=== PATIENT | female | born 1960 | race Caucasian/White ===

== ENCOUNTER → 2016-09-12 | Outpatient (CLI) | payer BC, OTHER ==
[~2016-09-12] VITALS: Ht 175.3 cm; Wt 100.8 kg
[~2016-09-12] MED LIST: ACCUNEB0.63 MG/3 INH; ADDERALL 20 MG20 M1 PO; ADDERALL 30 MG30 MG PO; ALBUTEROL2.5 MG/0.1 IH; ALBUTEROL2.5 MG/0.1 INH; AMITRIPTYLINE H25 M2 PO; ASPIR-LOW81 MG PO; ASPIRIN EC81 M1 PO; ASPIRIN325 PO; ATIVAN0.5 MG PO; BRINTELLIX10 MG PO; BRINTELLIX20 MG PO; BUPROPION XL150 MG PO; CALCIUM CITRAT1 EA18 PO; CENTRUM SILVER1 EAC4 PO; CIPROFLOXACIN500 M1 PO; COLESTID1 GM PO; COZAAR 25 MG TA25 M1 PO; DEPLIN-ALGAL O1 EAC1 PO; DILAUDID 2 MG TA2 MG PO; EFFEXOR XR PO; EFFEXOR XR150 MG PO; ESTRACE1 MG PO; FETZIMA80 MG PO; FISH OIL 1,001000 M2 PO; IBUPROFEN 600600 M1 PO; IBUPROFEN 800800 MG PO; LEVOTHYROXINE0.05 MG PO; LIPITOR 20 MG T20 M1 PO; MOBIC7.5 MG PO; MULTIVITAMINS PO; NORCO 10-325 T1 EACH PO; NORCO 5-325 TA1 EACH PO; NORTRIPTYLINE H10 M1 PO; ONDANSETRON HCL4 M2 PO; OXYCODONE HCL15 MG PO; OXYCODONE-ACET1 EAC2 PO; OXYCODONE-APAP1 EAC6 PO; OXYCONTIN15 MG PO; PERCOCET 10-321 EACH PO; PERCOCET 5-3251 EACH PO; PERCOCET 7.5-51 EACH PO; PREDNISONE 20 M20 M1 PO; PREDNISONE50 MG PO; PRISTIQ100 MG PO; PROAIR HFA8.5 GM IH; PROGESTERONE100 MG PO; PROVENTIL HFA6.7 G1 INH; REFRESH TEARS15 ML OPHTHALMIC; ROXANOL 20 M20 MG/ML PO; SEROQUEL 100 M100 M1 PO; TRAZODONE HCL100 MG PO; TRILIPEX PO; TRILIPIX135 MG PO; UNICOMPLEX M TA1 TA1 PO; URSO FORTE500 MG PO; VENTOLIN HFA 1818 GM INH; VERAPAMIL ER120 M1 PO; VITAMIN D-32000 UNIT PO; VITAMIN D1000 UNI1 PO; VOLTAREN GEL 1100 G2 TOP; VYVANSE70 MG PO; WELLBUTRIN 75 M75 M1 PO; WELLBUTRIN SR150 MG PO; XOPENEX 0.63 MG/3 M1 IH; XOPENEX1.25 MG/3 IH; ZANAFLEX4 MG PO; ZOFRAN 4 MG ORAL4 MG SUBLING; ZOFRAN ODT4 MG PO; ZOLOFT100 MG PO; ZPAK PO; ZYRTEC10 M2 PO
--- NOTE | ~2016-09-12 | HPC ---
[facility] [address] [address] PAIN MANAGEMENT CONSULTATION Name: SYLVIA JACK Room #: REG [facility] M..#: [id number] Admission: 09/12/16 Attend Phys: Eliseo Howard MD Discharge: Date of : 56 Report #: [id number] THIS REPORT FOR: //name// CC: Aristeo Howard DATE OF SERVICE: 09/12/2016 REASON FOR VISIT: Followup visit for chronic back pain with spondylosis. Also, chronic pancreatitis and management of high-risk medication. HISTORY OF PRESENT ILLNESS: The patient returns to pain clinic today for renewal of medication. She has been complaining of abdominal pain related to intermittent pancreatitis and also her chronic low back pain. I provided her with medication under terms of an opioid agreement. She says that with medication, her pain score is tolerable, 5/10, and also she finds that better pain control has helped greatly with her depression and her mood. She has suffered throughout her life with severe depression. She underwent ECT treatments other than 2013, and has been pretty stable since then, although she does not have severe depression, which required such aggressive treatment. She has chronic low mood, which is generally worse when her pain is more severe. Today, she reports that her activities have been reasonable. She has been able to do many of her day-to-day activities around the house and she gets out helping some family numbers. Pain is exacerbated by walking and prolonged standing in the low back. She cannot figure out dietarily what may exacerbate her pancreatitis, but when it occurs, it is severe. MEDICATIONS: Provided through our clinic are oxycodone 15 mg tablet, she takes one half tablet 4 times daily, a reduction from peak doses of about twice that; nortriptyline 10 mg at bedtime; levothyroxine 0.05; atorvastatin 20 mg daily; trazodone 100 mg at bedtime; Seroquel 100 mg at bedtime; multivitamins and cholecalciferol. ALLERGIES: PHENOTHIAZINES and MORPHINE. PAST MEDICAL HISTORY: Significant for: 1. Chronic pancreatitis. 2. Chronic low back pain with radiculopathy. 3. Severe chronic depression. 4. Qynsl-Hgxfyybdq-Jygue syndrome. PHYSICAL EXAMINATION: PSYCHIATRIC: Affect is pleasant, but a little flat. This is typical. VITAL SIGNS: Blood pressure 139/96, heart rate 91 and respirations 18. She is [facility] [address] [place] [address] PAIN MANAGEMENT CONSULTATION Name: SYLVIA JACK Room #: REG CL MEvert.#: [id number] Admission: 09/12/16 Attend Phys: Eliseo Howard MD Discharge: Date of : 56 Report #: [id number] 5 feet 9 inches, 222 pounds and BMI is 32.8. MUSCULOSKELETAL: She moves easily from sitting to standing position, ambulates without difficulty. Minor pain is noted across the low back, and she has decreased range of motion in flexion, extension and rotation. Straight leg raising is negative for sensory sensation changes or discomfort. Mild tenderness over multiple joints including hips and knees. IMPRESSION: 1. Chronic low back pain with spondylosis. 2. Chronic pancreatitis, intermittent, abdominal pain. 3. Management of high-risk medication. RECOMMENDATIONS: Today, I reviewed important issues related to the use of opioids and other potent, centrally-acting medications for the treatment of pain. Rationale for the use of medication is to reduce pain and improve daily activities and function. These activities, individualized for each patient, include simple activities of daily living, improvement in work capabilities, increased involvement in family and other social activities. Improvement in psychosocial elements of chronic pain were discussed in a broader conversation of wellness that included nonpharmacologic measures to manage pain, suffering and efforts to enhance wellbeing. Remaining as physically active as possible for age and ability plays a tremendous role in the management of chronic pain. This was encouraged. We reviewed potential medication side effects, toxicities and drug interactions, employing strategies to manage problems identified. Pain medications have potential side effects, and patients should exercise caution when operating machinery or driving. We discussed in detail the dramatic increase in the Emergency Room visits, hospitalizations and deaths related to misuse and diversion of prescription pain medications in [place]. This opioid crisis in [place] requires both physicians and patients alike to safely use all medications. Safeguarding of medications by keeping them safely locked up or out of reach of others is a critical patient responsibility to ensure that medications are not diverted to others. We discussed the Center for Disease Control (CDC) guidelines for safe use of opioids and the efforts to standardize opioid prescribing to prevent complications. These include guidelines which we strive to meet. They include the standardization of various opioids to morphine milligram equivalents (MME) and also stress the use of the lowest effective dose. Efforts to remain within daily maximum dosing guidelines will also be of focus of treatment. Addiction versus therapeutic use of medication includes routine followup, single prescriber, single pharmacy and the use of random drug screens and other tools to ensure safe prescribing. A signed agreement outlying these issues has been reviewed and remains on the patient chart. Prescriptions were provided today under terms of that agreement, and followup for her is planned in 3 months. [facility] [address] [place] [address] PAIN MANAGEMENT CONSULTATION Name: SYLVIA JACK Room #: REG [facility].#: [id number] Admission: 09/12/16 Attend Phys: Eliseo Howard MD Discharge: Date of : 56 Report #: [id number] I have renewed her oxycodone today at 7.5/325, #120 tablets per month, 1 tablet every 6 hours as needed. Followup visit is scheduled in 3 months. <ELECTRONICALLY SIGNED> By: Eliseo Hwoard MD 10/12/16 1130 [id number] Eliseo Howard MD /nt
[2016-09-12 09:00] VITALS: BP 139/96
[2016-09-17 14:09] LABS: EER PAIN MGT INTERP FINAL (())
== END ==
LOC: PAIN 07:12
PROVIDERS: Anesthesiology Pain Medicine
DX: M54.16 Radiculopathy, lumbar region (principal); F32.9 Major depressive disorder, single episode, unspecified; I45.6 Pre-excitation syndrome; G89.29 Other chronic pain; I10 Essential (primary) hypertension

== ENCOUNTER → 2016-11-28 | Outpatient (CLI) | payer BC, OTHER ==
[~2016-11-28] VITALS: Ht 175.3 cm; Wt 99.8 kg
[~2016-11-28] MED LIST changes: +COZAAR 50 MG TA50 M2 PO
--- NOTE | ~2016-11-28 | HPC ---
[facility] [address] [place] [address] PAIN MANAGEMENT CONSULTATION Name: SYLVIA JACK Room #: REG [facility] [id number] Admission: 11/28/16 Attend Phys: Eliseo Howard MD Discharge: Date of : 56 Report #: [id number] THIS REPORT FOR: //name// CC: Aristeo Howard DATE OF SERVICE: 11/28/2016 HISTORY OF PRESENT ILLNESS: The patient returns to the clinic today in followup for her chronic pain. She has chronic low back pain, multiple joint arthropathy. She has also suffered in the past from pancreatitis. Currently, she appears to be doing fairly well. Her pain scores is 5 and average for her. She is complaining of low back pain, sacroiliac joint pain, chronic and aching when standing and walking. She is grateful for medication, uses as prescribed, safeguards all medications and has had no red flag behaviors. Urine drug screens have been appropriate. Today, we discussed the opioid crisis in the [place], the importance of using medicines as prescribed. She will continue on her medication course for now. We will continue to monitor medications at 3-month intervals. PHYSICAL EXAMINATION: Affect is a bit flat today. Blood pressure is 162/123, heart rate is 119, BMI is 32.5. Tenderness across the low back is noted with straight leg raising bilaterally in the lower extremities. IMPRESSION: 1. Chronic low back pain with spondylosis. 2. Hypertension. She is off her medication. She has not been able to get a new prescription from Dr. Ash or from her bog worker. Apparently, her bog worker has left the group and she has not seen a new one. I have agreed to provide her with a prescription for her Cozaar 50 mg once daily. She has been off for the first several days. I would like her to take it immediately today and scheduled an appointment. 3. Chronic depression and anxiety, which is stable at the moment. PLAN: All medications renewed under terms of our agreement. We will see her back in 3 months. By: 1600 02 Eliseo Howard MD /nt
[2016-11-28 13:19] VITALS: BP 166/123
== END ==
LOC: PAIN 07:12
DX: K85.90 Acute pancreatitis without necrosis or infection, unspecified (principal); I10 Essential (primary) hypertension; F32.9 Major depressive disorder, single episode, unspecified; F41.9 Anxiety disorder, unspecified

== ENCOUNTER → 2017-02-24 | Outpatient (CLI) | payer BC, OTHER ==
[~2017-02-24] VITALS: Ht 175.3 cm; Wt 100.1 kg
--- NOTE | ~2017-02-24 | HPC ---
[facility] [address] [place] [address] PAIN MANAGEMENT CONSULTATION Name: SYLVIA JACK [facility]#: [id number] Admission: 02/24/17 Attend Phys: Eliseo Howard MD Discharge: Date of : 56 Report #: [id number] THIS REPORT FOR: //name// CC: Earnest Howard DATE OF SERVICE: 02/24/2017 DATE OF REGISTRATION: 02/24/2017 Followup visit for chronic back pain, sacroiliac joint pain and spondylosis. I also follow and manage high risk medication for her under terms of an opioid agreement. The patient returns to pain clinic today for renewal of her pain medication. She says she is doing fairly well. Her current dose of Percocet 4 tablets a day. She uses Percocet 7.5/325 effectively to help control her pain and improve her day-to-day activities. She denies any significant side effects. She has been on time for her medication and at each visit and has shown no red flag behaviors. Urine drug screen was performed a year and a half ago, which is appropriate, I have not repeated it. We discussed the opioid crisis again today, CDC guidelines and importance of safeguarding all medications and taking them as prescribed. On physical exam, her pain is 6 today. It is low back and sacroiliac joints associated with pain and stiffness when she moves and ambulates. She has localized tenderness. She has pain with forward flexion and extension of the spine. There is no numbness, tingling or weakness in the lower extremities. IMPRESSION: 1. Chronic intractable back pain with spondylosis. 2. Multiple joint arthropathy. 3. History of pancreatitis with abdominal pain. 4. History of severe recurrent clinical depression, currently in remission. 5. Hypertension. 6. Management of high risk medication. Medications were renewed under terms of our opioid agreement. Percocet 7.5 mg #4 per day, followup visit planned in 3 months. By: [id number] Eliseo Howard MD /nt
[2017-02-24 11:21] VITALS: BP 124/79
== END | disposition home or self-care (01) ==
LOC: PAIN 06:53
DX: M47.896 Other spondylosis, lumbar region (principal); G89.29 Other chronic pain; I10 Essential (primary) hypertension; J45.909 Unspecified asthma, uncomplicated; M12.88 Other specific arthropathies, not elsewhere classified, other specified site; F32.89 Other specified depressive episodes; F11.20 Opioid dependence, uncomplicated; Z87.19 Personal history of other diseases of the digestive system; Z88.8 Allergy status to other drugs, medicaments and biological substances; Z98.890 Other specified postprocedural states; Z79.899 Other long term (current) drug therapy

== ENCOUNTER → 2017-06-09 | Outpatient (CLI) | payer OTHER ==
[~2017-06-09] VITALS: Ht 175.3 cm; Wt 99.8 kg
[~2017-06-09] MED LIST changes: +IMODIUM A-D2 MG PO
--- NOTE | ~2017-06-09 | HPC ---
[facility] [address] [place] [address] PAIN MANAGEMENT CONSULTATION Name: SYLVIA JACK Room #: REG [facility] MWilma.#: [id number] Admission: 06/09/17 Attend Phys: Eliseo Howard MD Discharge: Date of : 56 Report #: [id number] THIS REPORT FOR: //name// CC: Aristeo Howard DATE OF SERVICE: 06/09/2017 Followup visit for management of intractable back pain and pancreatitis with abdominal pain. The patient returns to pain clinic today to discuss her medication. We spent about 25 minutes today discussing opioids. She has been certainly influenced by all ____ received discussing opioid addiction. She would like to taper her medication. I have agreed to drop her medication by about 25% today and then we talked about whether or not it is appropriate for her to remain on opioid medication. When she takes the medication, she definitely receives substantial pain relief and this has been sustained over the terms of our prescribing. She is grateful for the relief that she gets and how much benefit it provides for her. She has no significant side effects in fact with her issues regarding pancreatitis. She has frequent stools and this helps to slow them down, rather than be a complication, it is a benefit to her. She does not feel that it affects her cognitively. In fact, she thinks that she is able to concentrate more clearly and is able to work at home at her job with the use of the medicine. She has had no drug aberrant behaviors or signs of addiction. She safeguards her medication carefully. I think it is quite appropriate to treat her for her chronic pain issues with this. She has had a history of depression. We talked about depression at some length. She reports to me that her worst depression comes with issues associated with pain and the effects that it has on her day-to-day activities. Safeguarding medications and using them carefully I think is appropriate long-term for her and I hope that we will be able to provide her with these medications indefinitely. Her current morphine milligram equivalence is 7.5 x 4 tablets a day or 30 mg of oxycodone equal to 45 MME. I reviewed the CDC guidelines with her and her opioid agreement. PHYSICAL EXAMINATION: GENERAL: Today, her affect is a little depressed. VITAL SIGNS: Blood pressure 130/94, heart rate 105, respirations 18. MUSCULOSKELETAL: She has tenderness across her low back. Positive straight leg raising on the left with numbness and tingling in the calf. ABDOMEN: Mildly tender. IMPRESSION: [facility] [address] [place] [address] PAIN MANAGEMENT CONSULTATION Name: SYLVIA JACK [id number] Admission: 06/09/17 Attend Phys: Eliseo Howard MD Discharge: Date of : 56 Report #: [id number] 1. Chronic intractable back pain with spondylosis. 2. History of pancreatitis with abdominal pain. 3. History of severe recurrent clinical depression, currently in remission, although her mood seems to be lower today and she is apprehensive about her use of medication, which I believe that we have helped with today. 4. Management of high risk medication. Medications were renewed under terms of our agreement for 3 months, oxycodone 7.5/325 #120 tablets q.i.d. and a followup visit is scheduled in 3 months. Total time 25 minutes. By: [id number] Eliseo Howard MD /nt
[2017-06-09 12:47] VITALS: BP 130/94
== END | disposition home or self-care (01) ==
LOC: PAIN 06:59
DX: Z76.0 Encounter for issue of repeat prescription (principal); M47.896 Other spondylosis, lumbar region; G89.29 Other chronic pain; J45.909 Unspecified asthma, uncomplicated; F32.89 Other specified depressive episodes; Z87.19 Personal history of other diseases of the digestive system; Z79.891 Long term (current) use of opiate analgesic; Z88.6 Allergy status to analgesic agent; Z88.8 Allergy status to other drugs, medicaments and biological substances; Z79.899 Other long term (current) drug therapy

== ENCOUNTER → 2017-09-22 | Outpatient (CLI) | payer OTHER ==
[~2017-09-22] VITALS: Ht 175.3 cm; Wt 101.2 kg
[~2017-09-22] MED LIST changes: +EFFEXOR XR75 MG PO; +GEMFIBROZIL 60600 M1 PO
--- NOTE | ~2017-09-22 | HPC ---
[facility] [address] [place] [address] PAIN MANAGEMENT CONSULTATION Name: SYLVIA JACK Room #: REG [facility] MEvert.#: [id number] Admission: 09/22/17 Attend Phys: Trey Haile DO Discharge: Date of : 56 Report #: [id number] THIS REPORT FOR: //name// CC: Aristeo Haile This is a 57-year-old female, typically treated by Dr. Howard for ongoing axial back pain, lumbar spondylosis, component of SI mediated pain, history of pancreatitis and abdominal pain requiring high risk complex medication management. Last seen in the pain clinic on 06/09/2017, continued on baseline medication including Percocet 7.5/325 up to 4 a day. The patient returns to pain clinic today noting medications generally helpful enabling the patient to participate in activities of daily living, rates her subjective pain score 7 on a VAS. No history of arthritis, although she has been treated for left SI mediated pain with only nominal efficacy. BMI 32.9 kilograms per meter squared. Vital signs stable as noted on the EMR. 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 Does have history of hypertension, medicine list was reconciled today. She has been on opiate consent to treat contract for some time, last contract reviewed 03/06/2016. Last drug screen was 09/2016, positive for prescribed medications. We did take the liberty of renewing buccal drug swab today. No aberrant behavior suggestive of drug diversion, simply complying with the opiate consent to treat contract. The patient's functional assessment tool notes a moderate impact of 35/70. She scores low risk on the opiate risk assessment tool. PHYSICAL EXAMINATION: Otherwise shows tenderness over the left SI. Modestly positive Mikaela test. No radicular symptoms noted. Gait is generally tandem. Abdominal exam is deferred. She notes last bout of pancreatitis related type pain was greater than a month ago. She notes to simply switch to a clear liquid diet when she starts to get early symptoms of GI distress. We reviewed the fact that opiate medications are being used to provide analgesia adequate to support activities of daily living, not attempting to achieve a specific pain score on the 0-10 Visual Analog Scale. The current opiate medications are providing sufficient analgesia to allow the patient to participate in activities of daily living. The patient is not exhibiting any aberrant behavior suggestive of drug diversion. The patient is not having any adverse reactions to medications. The patient is not suffering from daytime somnolence or mental acuity changes. The patient is managing opiate-induced constipation with appropriate dtgl-tdq-vpshhzs agents and dietary considerations. The patient was counseled on concern for caution with operating a motor vehicle while using opiate medications. A physical exam was performed and the patient's functional status was evaluated. All patients with back pain were advised against the bed rest greater than [address] [place] [address] PAIN MANAGEMENT CONSULTATION Name: SYLVIA JACK SAADIA Room #: REG CL Terri#: [id number] Admission: 09/22/17 Attend Phys: Trey Haile DO Discharge: Date of : 56 Report #: [id number] days and were advised to return to normal activities. Pain score assessment was noted and the treatment plan was reviewed with the patient. All current medications, both prescribed and OTC were reviewed and reconciled on the electronic medical record. Tobacco screening was accomplished and smoking cessation was advised when indicated. BMI was noted and diet/exercise modification was recommended for all patients following outside normal parameters. I reviewed with the patient today their responsibilities to safeguard prescription medications, reviewed their responsibility to utilize medications only as prescribed by the physician. They are to seek and receive pain medications only from 1 physician group ( [facility]). They are to use 1 pharmacy and keep the clinic informed if they change pharmacies. Their responsibilities include making followup visits in a timely fashion and to avoid abrupt discontinuation of medication usage. Their responsibilities further include bringing their medications (bottles from the pharmacy with residual pills) to the visit for possible confirmation of pill counts and the patient understands it is their responsibility to submit to random drug screens to ensure both that the medications prescribed are present, and that no other controlled substances are present. All prescriptions provided today were generated electronically. ASSESSMENT: Axial back pain, lumbar spondylosis, history of abdominal pain, pancreatitis with component of left SI mediated pain, requiring high risk complex medication management. RECOMMENDATION: 1. Discussed with the patient. They would like to do one repeat buccal drug swab today. Again, last random drug screen approximately 1 year ago 09/2016. 2. Renew Percocet 7.5/325 up to 4 times a day. Follow up in 3 months for reevaluation. We did talk about core strengthening exercises to help mitigate SI mediated pain. <ELECTRONICALLY SIGNED> By: Trey Haile DO 09/24/17 [id number] Trey Haile DO /nt
[2017-09-22 13:59] VITALS: BP 142/89
== END ==
LOC: PAIN 07:11
DX: M47.896 Other spondylosis, lumbar region (principal); M53.3 Sacrococcygeal disorders, not elsewhere classified; Z87.19 Personal history of other diseases of the digestive system; Z79.899 Other long term (current) drug therapy

== ENCOUNTER → 2018-01-30 | Outpatient (CLI) | payer OTHER ==
[~2018-01-30] VITALS: Ht 175.3 cm; Wt 103.8 kg
[~2018-01-30] MED LIST changes: -EFFEXOR XR75 MG PO; -GEMFIBROZIL 60600 M1 PO
--- NOTE | ~2018-01-30 | HPC ---
[facility] [place] [address] PAIN MANAGEMENT CONSULTATION Name: SYLVIA JACK [id number] Admission: 01/30/18 Attend Phys: Trey Haile DO Discharge: Date of : 56 Report #: [id number] THIS REPORT FOR: //name// CC: Aristeo Haile HISTORY OF PRESENT ILLNESS: The patient is a very pleasant 57-year-old female typically treated by Dr. Eliseo Howard for ongoing axial back pain, lumbar and lumbosacral spondylosis without myelopathy, requiring complex medication management. I did see her at her last on 09/22/[address] Howard's absence, ordered a random drug screen at that time. Reviewing the random drug screen was positive for oxycodone and nortriptyline as expected. No aberrant findings were noted. She returns to pain clinic today noting medications are generally providing sufficient analgesia to participate in activities of daily living. She uses her Percocet 7.5/325 on a nondaily basis. She had prescriptions for 120 tablets total of 3 months generated on 09/22/2017. The 3-month prescription last about 4-1/2 months. She returns to pain clinic today noting pain is about 6 on a VAS. Pain is across the low back, sacroiliac area, has a little numbness in the left leg calf and foot. Notes chronic aching, stiffness is exacerbated with standing, walking, weather changes as well. She states sometimes "the pain is just there." She gets some relief with medication, heat and when she is recumbent. PHYSICAL EXAMINATION: Reveals a 57-year-old female modestly overweight with a BMI of 33.8 kilograms per meter squared. Blood pressure 151/79, pulse is 110, respirations of 16. She is alert and oriented to person, place, and time, judged to be a reasonable historian. Rises from chair using armrest, modestly antalgic gait favoring the left leg. Diffuse tenderness across the low back, no discrete trigger points noted. Lumbar range of motion is limited. Side bending flexion and extension all exacerbate pain. The patient has not fallen in the last 3 months. She is an opiate consent to treat contract patient having last signed in 03/2016. We reviewed the patient's responsibilities regarding medication use, she is using it exquisitely appropriately as noted, she uses it on a very much p.r.n. basis. She is unable to take up to 4 tablets a day, she rarely does this. We reviewed the fact that opiate medications are being used to provide analgesia adequate to support activities of daily living, not attempting to achieve a specific pain score on the 0-10 Visual Analog Scale. The current opiate medications are providing sufficient analgesia to allow the patient to participate in activities of daily living. The patient is not exhibiting any aberrant behavior suggestive of drug diversion. The patient is not having any adverse reactions to medications. The patient [place] [address] PAIN MANAGEMENT CONSULTATION Name: GUEROSYLVIA SAADIA Room #: REG [facility]HEL[facility] Murray#: [id number] Admission: 01/30/18 Attend Phys: Trey Haile DO Discharge: Date of : 56 Report #: [id number] somnolence or mental acuity changes. The patient is managing opiate-induced constipation with appropriate [id number] agents and dietary considerations. The patient was counseled on concern for caution with operating a motor vehicle while using opiate medications. A physical exam was performed and the patient's functional status was evaluated. All patients with back pain were advised against the bed rest greater than 4 days and were advised to return to normal activities. Pain score assessment was noted and the treatment plan was reviewed with the patient. All current medications, both prescribed and OTC were reviewed and reconciled on the electronic medical record. Tobacco screening was accomplished and smoking cessation was advised when indicated. BMI was noted and diet/exercise modification was recommended for all patients following outside normal parameters. I reviewed with the patient today their responsibilities to safeguard prescription medications, reviewed their responsibility to utilize medications only as prescribed by the physician. They are to seek and receive pain medications only from 1 physician group ( [facility]). They are to use 1 pharmacy and keep the clinic informed if they change pharmacies. Their responsibilities include making followup visits in a timely fashion and to avoid abrupt discontinuation of medication usage. Their responsibilities further include bringing their medications (bottles from the pharmacy with residual pills) to the visit for possible confirmation of pill counts and the patient understands it is their responsibility to submit to random drug screens to ensure both that the medications prescribed are present, and that no other controlled substances are present. All prescriptions provided today were generated electronically. ASSESSMENT: 1. Symptomatic axial back pain. 2. Lumbar and lumbosacral spondylosis without myelopathy, requiring complex medication management in the opiate consent to treat contract patient, has been very stable on current medication. She is prescribed a maximum of 45 mEq of morphine a day (Percocet 7.5/325 up to four a day). RECOMMENDATIONS: I have taken the liberty of renewing 3 months of current medication. The patient was discharged in good and stable condition. Follow up with Dr. Eliseo Howard. <ELECTRONICALLY SIGNED> By: Trey Haile DO 02/02/18 [id number] Trey Haile DO /hoa
[2018-01-30 09:35] VITALS: BP 151/79
== END ==
LOC: PAIN 07:27
DX: M47.27 Other spondylosis with radiculopathy, lumbosacral region (principal); Z79.899 Other long term (current) drug therapy

== ENCOUNTER → 2018-04-27 | Outpatient (CLI) | payer OTHER ==
[~2018-04-27] VITALS: Ht 175.3 cm; Wt 103.9 kg
[~2018-04-27] MED LIST changes: +EFFEXOR XR75 MG PO; +GEMFIBROZIL 60600 M1 PO
--- NOTE | ~2018-04-27 | HPC ---
[facility] [address] [place] [address] PAIN MANAGEMENT CONSULTATION Name: SYLVIA JACK Room #: REG [facility] M..#: [id number] Admission: 04/27/18 Attend Phys: Eliseo Howard MD Discharge: Date of : 56 Report #: [id number] THIS REPORT FOR: //name// CC: Aristeo Howard DATE OF SERVICE: 04/27/2018 Followup visit for chronic pain. The patient returns to pain clinic today in followup for low back pain. The patient has been managing with medication for a number of years. We have slowly tapered her morphine milligram equivalents and she has been able to do so without significant increases in pain. Her current daily dose of medication is oxycodone 7.5/325 four times daily. This equates to a morphine milligram equivalency of 45. She has pain in her hips, sacroiliac joint is worse with walking and gardening. She also has intermittent abdominal pain related to a condition she describes as chronic pancreatitis. It flares about every 4-6 weeks and usually resolves without need for gastrointestinal consultation. She reports that her medication is very helpful. She scores her pain as a 6 today, which is a fairly high number, but she reports without medication, she would be more incapacitated. With medications, she is able to be more involved in day-to-day activities. In fact, recently was working in the garden. She paid the duenas with some increase in back pain for the next day. We talked about this as a normal phenomena for most people in our age group. Use of heat, ice and nonmedicinal pain treatments have been reviewed. In the past, she has had some injections with favorable responses, but for now, we are using injections only when the pain is very severe. She has had buccal drug testing performed intermittently. Most recent testing done earlier this year appropriate for medications provided. We have checked medication through the [employer] prescribing system and all medications are appropriate for what were prescribed with no additional prescribers. PHYSICAL EXAMINATION: She is pleasant, alert and oriented without any signs of depression, anxiety or overmedication. Her blood pressure is 135/83, heart rate 108, respirations 16. Her BMI is 33. She is able to move from sitting to standing position, walks with mild antalgic feature. She has pain with forward flexion, extension and tenderness across the lumbosacral segment. There is no leg pain at this time. Abdomen is nontender. [facility] [address] [place] [address] PAIN MANAGEMENT CONSULTATION Name: SYLVIA JACK Room #: REG [facility] Terri#: [id number] Admission: 04/27/18 Attend Phys: Eliseo Howard MD Discharge: Date of : 56 Report #: [id number] IMPRESSION: 1. Chronic low back pain with spondylosis. 2. Chronic pancreatitis with intermittent abdominal pain. 3. Management of high-risk medications under terms of written opioid agreement. PLAN: Renew medications under terms of our agreement. Most important thing I have discussed with her is the safeguarding of all medications under terms of our agreement. She is responsible for medications once they leave our clinic. She reports to me that she has her medications locked and will keep vigilant. She denies any significant side effects at this time. By: [id number] Eliseo Howard MD /nt
[2018-04-27 12:38] VITALS: BP 135/83
== END ==
LOC: PAIN 07:01
DX: M47.816 Spondylosis without myelopathy or radiculopathy, lumbar region (principal); K86.1 Other chronic pancreatitis; G89.29 Other chronic pain; Z79.891 Long term (current) use of opiate analgesic

== ENCOUNTER → 2018-08-21 | Outpatient (CLI) | payer OTHER ==
[~2018-08-21] VITALS: Ht 175.3 cm; Wt 100.7 kg
--- NOTE | ~2018-08-21 | HPC ---
[facility] [address] [place] [address] PAIN MANAGEMENT CONSULTATION Name: SYLVIA JACK Room #: REG [facility].#: [id number] Admission: 08/21/18 Attend Phys: Eliseo Howard MD Discharge: Date of : 56 Report #: [id number] THIS REPORT FOR: //name// CC: Aristeo Howard DATE OF SERVICE: 08/21/2018 CHIEF COMPLAINT: Chronic low back pain. HISTORY OF PRESENT ILLNESS: This is a followup visit for the patient, who is doing reasonably well with her medication and is stable. Her medications have been stable for some time. We have made very few adjustments. She uses her medication cautiously, is grateful for the pain relief that it provides and improves her day-to-day function and mood. She suffers from depression and seasonal affective disorder. We discussed strategies to help with this unfortunate disorder. I stressed getting outside for a walk, even in the coldest weather. Studies have shown that this is helpful. She receives oxycodone 7.5/325 four tablets daily. This is 30 mg of oxycodone or 45 MME. She has been at that dose for some time and has been continuing to try and taper her medication further. She is open to trying to go to a lower dose at a subsequent visit. I looked back in her chart at least as far as 2013 and the dose was similar. PHYSICAL EXAMINATION: GENERAL: She is slightly depressed, but pleasant. VITAL SIGNS: Blood pressure 147/57, heart rate 83, BMI is 32.8. We discussed weight strategies during the holidays. Pain intensity is 5/10. MUSCULOSKELETAL: She moves from the sitting to standing position and ambulates, but does not appear to be a fall risk. She has some tenderness across her low back. The patient is on no blood thinners; has a history of hypertension, under treatment and is on an opioid agreement signed in 2016. Her opioid risk tool suggests that she is at low risk and she does not use tobacco or alcohol. 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 This involves her left hip primarily. IMPRESSION: 1. Chronic intractable back pain, spondylitic low back pain with multi-joint [facility] [address] [place] [address] PAIN MANAGEMENT CONSULTATION Name: SYLVIA JACK Room #: REG CL M.R.#: [id number] Admission: 08/21/18 Attend Phys: Eliseo Howard MD Discharge: Date of : 56 Report #: [id number] arthropathy, worse on the left hip. 2. Management of high-risk medications. 3. History of pancreatitis with intermittent abdominal pain. 4. Hypertension. 5. History of chronic and recurrent depression. Medications were renewed under terms of our written agreement. A followup visit is scheduled in 3 months. By: [id number] Eliseo Howard MD /nt
[2018-08-21 08:55] VITALS: BP 147/57
== END ==
LOC: PAIN 08:28
DX: M54.5 Low back pain (principal); G89.29 Other chronic pain; F32.9 Major depressive disorder, single episode, unspecified; I10 Essential (primary) hypertension; K85.90 Acute pancreatitis without necrosis or infection, unspecified

== ENCOUNTER 2018-10-16 12:57 | Emergency (ER) | payer OTHER ==
[~2018-10-16] VITALS: Ht 177.8 cm; Wt 93.0 kg
[2018-10-16] MEDS ORDERED: EFFEXOR 5050 MG/1 T1 PO (13:13)
[2018-10-16 13:14] LABS: URINE BILIRUBIN NEGATIVE (Negative); URINE BLOOD NEGATIVE (Negative); URINE CLARITY CLEAR; URINE COLOR YELLOW; URINE GLUCOSE-RANDOM* NEGATIVE (Negative); URINE KETONES NEGATIVE (Negative); URINE LEUKOCYTES-REFLEX NEGATIVE (Negative); URINE NITRITE-REFLEX NEGATIVE (Negative); URINE PROTEIN (DIPSTICK) NEGATIVE (Negative); URINE SPECIFIC GRAVITY 1.025 (1.005-1.035); URINE UROBILINOGEN 0.2 E.U./dl (0.2-1.0)
[2018-10-16 13:27] LABS: ABSOLUTE NEUTROPHILS 5.6 thou/uL (1.4-8.2); BASOPHILS 0.2 % (0.0-2.0); EOSINOPHILS 2.6 % (0.0-3.0); HEMATOCRIT 40.9 % (37.0-47.0); HEMOGLOBIN 14.3 gm/dL (12.0-15.0); MCH 29.9 pg (26.0-34.0); MCHC 35.1 g/dL (28.0-37.0); MCV 85.3 fL (80.0-100.0); MONOCYTES 6.7 % (1.0-8.0); PLATELET COUNT 264 thou/uL (150-400); POLYS 61.5 % (36.0-66.0); RBC 4.79 mil/uL (4.20-5.00); RDW 12.7 % (10.5-14.5); WBC 9.2 thou/uL (4.0-11.0)
[2018-10-16 13:34] LABS: CALCIUM 9.6 mg/dL (8.5-10.1); CREATININE 0.6 mg/dL (0.6-1.0); POTASSIUM 3.7 mmol/L (3.5-5.1)
[2018-10-16 13:40] LABS: ALBUMIN 4.2 g/dL (3.4-5.0); TOTAL BILIRUBIN 0.3 mg/dL (<0.1-1.0); TOTAL PROTEIN 8.2 g/dL (6.4-8.2)
[2018-10-16] MEDS ORDERED: BENTYL 20 MG TA20 M1 PO (15:50)
[2018-10-16 16:23] VITALS: BP 139/69
== END 2018-10-16 16:20 | disposition home or self-care (01) ==
LOC: ER 12:57
PROVIDERS: Physician Assistant
DX: R10.32 Left lower quadrant pain (principal); F32.9 Major depressive disorder, single episode, unspecified; K86.1 Other chronic pancreatitis; J45.909 Unspecified asthma, uncomplicated; Z88.8 Allergy status to other drugs, medicaments and biological substances; Z88.5 Allergy status to narcotic agent; Z98.890 Other specified postprocedural states; Z90.49 Acquired absence of other specified parts of digestive tract

== ENCOUNTER → 2018-12-07 | Outpatient (CLI) | payer OTHER ==
[~2018-12-07] VITALS: Ht 175.3 cm; Wt 99.2 kg
[~2018-12-07] MED LIST changes: +BENTYL 20 MG TA20 M1 PO; +EFFEXOR 5050 MG/1 T1 PO; +LAMICTAL100 MG PO; +LOSARTAN POTASS50 MG PO; +OXYCODON-ACETA1 EAC1 PO; +ZOLPIDEM TART12.5 M1 PO
--- NOTE | ~2018-12-07 | HPC ---
[facility] [address] [place] [address] PAIN MANAGEMENT CONSULTATION Name: SYLVIA JACK Room #: REG [facility] MEvert.#: [id number] Admission: 12/07/18 ������������������ Attend Phys: Eliseo Howard MD Discharge: ������������������ Date of : 56 Report #: [id number] THIS REPORT FOR: //name// CC: Aristeo Howard REASON FOR VISIT: Followup visit for chronic low back pain with spondylosis and arthropathy. HISTORY OF PRESENT ILLNESS: The patient was in the clinic today and we spent roughly 25 minutes today talking about chronic pain, depression, schizoaffective disorder. She has had a really rough winter. Her depression has been severe and she has been adjusting her medications with her psychiatrist. She has been recently been started on yet another medication as in addition to her current regimen. She is on venlafaxine, trazodone and is now starting lamotrigine. She has trouble to sleep and has been given zolpidem extended release 12.5 mg tablets. She is only sleeping about 3 hours a night. This may be related to polypharmacy. Her pain medication helps her get through her day. We talked about whether or not opioids cause depression while I am certain that they do in certain circumstances. In the patient's case, I believe that they provide relief of her pain and that she would be worse without the medication. She also feels that they play an important role in providing pain relief giving her some hope. I would not consider tapering her for a trial off of opioids at this time. I do feel that sleep deprivation is a huge problem. We know that this worsens depression and there is a bit of a chicken or the egg situation with insomnia and depression. She may, however, benefit from an antidepressant with sedating properties and I have suggested she discuss the possibility of mirtazapine 7.5 mg with her psychiatrist. PHYSICAL EXAMINATION: GENERAL: Today, her affect is depressed. She was in tears a couple of times. She moves independently from sitting to standing position, walks with stiffness of her gait. She has pain with forward flexion, extension, rotation of the lumbar spine. VITAL SIGNS: Blood pressure 114/90, heart rate 100, respirations 14, BMI 32.3. HEENT: Pupils are equal, round, reactive to light. EOMs are intact. EXTREMITIES: There is tenderness in her hips, knees, shoulders and elbows. IMPRESSION: 1. Chronic recurrent depression. 2. Intractable low back pain with spondylosis and severe arthropathy. [facility] [address] [place] [address] PAIN MANAGEMENT CONSULTATION Name: SYLVIA JACK Room #: REG [facility].#: [id number] Admission: 12/07/18 ������������������ Attend Phys: Eliseo Howard MD Discharge: ������������������ Date of : 56 Report #: [id number] 3. History of pancreatitis with intermittent abdominal pain. 4. Hypertension. 5. Management of high risk medication opioids under terms of written opioid agreement. PLAN: I renewed oxycodone 7.5/325 four times daily. She is grateful for the pain relief it provides, has no significant side effects. In fact, constipating effect is helpful for her pancreatitis. She safeguards her medications carefully and there are no unexpected entries in her prescription drug monitoring program. ��������������������������������������������� ���������������������������������������� By: ��������������������������������������������� [id number] Eliseo Howard MD /nt
[2018-12-07 13:17] VITALS: BP 114/90
--- NOTE | 2018-12-07 13:31 | NUR ---
Pain Clinic Assessment: 1. History of Osteoarthritis: Not Applicable History of Rheumatoid Arthritis: Not Applicable 2. Height: 5 ft. 9 in. 175.3 cm. Weight: 218.8 lb. oz. 99.247 kg. Patient's BMI: 32.3 3. Vital Signs: BP: 114/90 Pulse: 100 Resp: 14 Temp: 02 Sat: 95 ECG Mon: 4. Pain Intensity: 5 5. Fall Risk: Dizziness: N Needs help standing or walking: N Fallen in the last 3 months: N Fall risk comments: 6. Patient on Blood Thinner: None 7. History of Hypertension: Y 8. Opioid Therapy greater than 6 weeks: Y Opiate Contract Signed: 03/06/16 9. Risk Assessment Tool Provided: LOW RISK-1 10. Functional Assessment Tool: 11. Recreational Drug Use: Never Drug Type: Tobacco Use: Never Smoker Tobacco Type: Amount or Packs/day: How Many Years: Alcohol Use: No Frequency: Quant:
== END ==
LOC: PAIN 06:57
DX: M47.816 Spondylosis without myelopathy or radiculopathy, lumbar region (principal); G89.29 Other chronic pain; F32.89 Other specified depressive episodes; I10 Essential (primary) hypertension; Z79.891 Long term (current) use of opiate analgesic

== ENCOUNTER → 2019-04-12 | Outpatient (CLI) | payer OTHER ==
[~2019-04-12] VITALS: Ht 175.3 cm; Wt 99.5 kg
[~2019-04-12] MED LIST changes: +ATIVAN1 MG PO; +QUETIAPINE FUM300 MG PO
[2019-04-12 09:40] VITALS: BP 117/59
--- NOTE | 2019-04-12 09:49 | NUR ---
Pain Clinic Assessment: 1. History of Osteoarthritis: Not Applicable History of Rheumatoid Arthritis: Not Applicable 2. Height: 5 ft. 9 in. 175.3 cm. Weight: 219.4 lb. oz. 99.519 kg. Patient's BMI: 32.4 3. Vital Signs: BP: 117/59 Pulse: 104 Resp: 16 Temp: 02 Sat: 99 ECG Mon: 4. Pain Intensity: 5 5. Fall Risk: Dizziness: N Needs help standing or walking: N Fallen in the last 3 months: N Fall risk comments: 6. Patient on Blood Thinner: None 7. History of Hypertension: Y 8. Opioid Therapy greater than 6 weeks: Y Opiate Contract Signed: 03/06/16 9. Risk Assessment Tool Provided: LOW RISK-1 10. Functional Assessment Tool: 11. Recreational Drug Use: Never Drug Type: Tobacco Use: Never Smoker Tobacco Type: Amount or Packs/day: How Many Years: Alcohol Use: No Frequency: Quant:
--- NOTE | 2019-04-13 10:11 | HPC ---
[facility] [address] [place] [address] PAIN MANAGEMENT CONSULTATION Name: SYLVIA JACK Room #: REG [facility] Earnest.#: [id number] Admission: 04/12/19 Attend Phys: Carolyn Fountain Discharge: Date of : 56 Report #: [id number] THIS REPORT FOR: //name// CC: Carolyn Ash DATE OF SERVICE: 04/12/2019 CHIEF COMPLAINT: Chronic low back pain with spondylosis. HISTORY OF PRESENT ILLNESS: This is a pleasant 58-year-old who returns to the pain clinic today for her chronic back pain. She suffers with as well as her depression and schizoaffective disorder. The patient tells me that her depression is slightly better in the last few months. She had restarted her Seroquel and changed her trazodone dose, does see her psychologist, Dr. John on a monthly basis, so she is feeling slightly better. She said when the weather is gloomy outside that does affect her quite significantly. Since she was here last in November, she has been able to decrease her pain pills slightly, which she is happy about. She would like to get off of her oxycodone medicines completely, but understands that it is a long process of weaning off these medicines. The patient tells me that her pain score is a 5/10 today, mostly in her lower back and her right hip. She tells me that mornings are the worst. She is quite stiff and sore. Then as the day progresses, she is better unless she overdoes her activities, then she does have increased pain again. The weather also plays a significant role in her pain. Medications are helpful as well as heat and lying down. The patient denies any problems with constipation due to her history of pancreatitis. The narcotics do actually benefit her bowels. The patient would like a refill of her medications today. ALLERGIES: MORPHINE and PHENOTHIAZINES. CURRENT LIST OF MEDICATIONS: Lorazepam p.r.n., Seroquel 300 mg at bedtime, oxycodone 7.5/325 p.r.n., gemfibrozil 600 mg b.i.d., Synthroid 0.5 mg daily, trazodone 100 mg at bedtime, vitamin D3 and multivitamin. PQRS: 1. She has some arthritic changes in her lumbar spine. Denies any rheumatoid arthritis. She also has osteoarthritis in her hip. 2. Height is 5 feet 9 inches, weight is 219, BMI is 32. Vital signs 117/59, pulse is 104, respirations 16, oxygen sat is 99. Pain score 5/10. Fall risk denies. Dizziness, does not need help walking or standing, has not fallen in the last 3 months. 3. The patient is not on any blood thinners, does take medicine for hypertension. Her opioid therapy is greater than 6 weeks; therefore, an opioid signed contract is on the chart. Risk assessment tool is low. Functional assessment is . [address] [address] PAIN MANAGEMENT CONSULTATION Name: GUEROSYLVIA SAADIA Room #: REG [facility] Murray#: [id number] Admission: 04/12/19 Attend Phys: Carolyn Fountain Discharge: Date of : 56 Report #: [id number] 4. Recreational drug use, she denies. She is not a smoker and does not drink alcohol. According to the prescription monitoring system, the patient is filling appropriately. She has actually been here greater than 4 months ago and has decreased her pain pills. PHYSICAL EXAMINATION: GENERAL: This is a slightly depressed, alert and orientated 58-year-old female who appears her stated age. HEENT: Normocephalic, atraumatic. Extraocular eye muscles are intact. EXTREMITIES: There is tenderness in her hips, knees and shoulders. The patient moves independently from sitting to standing position and walks with a slightly antalgic gait. She does have pain with flexion and extension of her lumbar spine. Her lower extremity strength judged to be 5/5 in all major muscle groups. We reviewed the fact that opiate medications are being used to provide analgesia adequate to support activities of daily living, not attempting to achieve a specific pain score on the 0-10 Visual Analog Scale. The current opiate medications are providing sufficient analgesia to allow the patient to participate in activities of daily living. The patient is not exhibiting any aberrant behavior suggestive of drug diversion. The patient is not having any adverse reactions to medications. The patient is not suffering from daytime somnolence or mental acuity changes. The patient is managing opiate-induced constipation with appropriate dkzw-zus-vosiijk agents and dietary considerations. The patient was counseled on concern for caution with operating a motor vehicle while using opiate medications. A physical exam was performed and the patient's functional status was evaluated. All patients with back pain were advised against the bed rest greater than 4 days and were advised to return to normal activities. Pain score assessment was noted and the treatment plan was reviewed with the patient. All current medications, both prescribed and OTC were reviewed and reconciled on the electronic medical record. Tobacco screening was accomplished and smoking cessation was advised when indicated. BMI was noted and diet/exercise modification was recommended for all patients following outside normal parameters. I reviewed with the patient today their responsibilities to safeguard prescription medications, reviewed their responsibility to utilize medications only as prescribed by the physician. They are to seek and receive pain medications only from 1 physician group ( [facility]). They are to use 1 pharmacy and keep the clinic informed if they change pharmacies. Their responsibilities include making followup visits in a timely fashion and to avoid abrupt discontinuation of medication usage. Their responsibilities further [facility] [address] [place] [address] PAIN MANAGEMENT CONSULTATION Name: SYLVIA JACK Room #: REG [facility] [place].#: [id number] Admission: 04/12/19 Attend Phys: Carolyn Fountain Discharge: Date of : 56 Report #: [id number] include bringing their medications (bottles from the pharmacy with residual pills) to the visit for possible confirmation of pill counts and the patient understands it is their responsibility to submit to random drug screens to ensure both that the medications prescribed are present, and that no other controlled substances are present. All prescriptions provided today were generated electronically. PLAN: 1. We discussed treatment options with the patient today. The patient has done quite well decreasing her medications. She does take half a pill twice up to 4 times a day and would like to slowly wean off her medicines. We did discuss for a significant amount of time her to decrease slowly off her medicines and let her body adjusts. Dr. Howard did reiterate this when he did see the patient as well, explaining to decrease a half a tablet every month to 2 to let her brain reset itself. The patient verbalizes understanding. We will write for oxycodone 7.5/325 t.i.d., which is a decrease for today and 4-week and 8-week release. The patient will call for an appointment when she needs to with this medication. 2. We also did discuss when the patient does get to a lower amount of pills, we could decrease the strength to 5/325 of her oxycodone. 3. The patient is dealing with her mother who has been sick and is about to start hospice and she is also trying to sell her estate, so she has a lot going on in her life. We explained to her that also this may not be the best time to decrease too rapidly of her medications. She verbalizes understanding. The patient will return in followup in 3-4 months. The patient seen in collaboration today with Dr. Eliseo Howard. <ELECTRONICALLY SIGNED> By: Carolyn Fountain 04/13/19 [id number] Carolyn Fountain /nt
== END ==
LOC: PAIN 06:44
DX: M47.816 Spondylosis without myelopathy or radiculopathy, lumbar region (principal); Z88.8 Allergy status to other drugs, medicaments and biological substances; Z79.899 Other long term (current) drug therapy